=== PATIENT | female | born 1985 | race Caucasian/White ===

== ENCOUNTER 2016-08-29 23:08 | Inpatient (IN) | payer OTHER ==
[~2016-08-29] VITALS: Ht 162.6 cm; Wt 76.7 kg
[2016-08-29 23:26] VITALS: BP 109/73
[2016-08-29] MEDS ORDERED: PREN1TAB89 PO (23:29)
[2016-08-29] MEDS ORDERED: OXYTOCIN 30 UNITS/LACT RINGERS 500 ML IV ONE (23:54)
[2016-08-29] MEDS ORDERED: RINGERS SOLUTION,LACTATED 1,000 ML IV PRN (23:54)
[2016-08-30] MEDS ORDERED: FentaNYL CITRATE-PF 100 MCG/2 ML VIAL IVP PRN
[2016-08-30] MEDS ORDERED: CITRIC ACID/SODIUM CITRATE 30 ML SOLUTION UDCUP PO PRN
[2016-08-30] MEDS ORDERED: METOCLOPRAMIDE HCL 5 MG/ML 2 ML VIAL IVP PRN
[2016-08-30 00:21] LABS: BASOPHILS # (AUTO) 0.08 K/uL (0.00-0.20); BASOPHILS % (AUTO) 0.8 % (0.0-2.0); EOSINOPHILS # (AUTO) 0.08 K/uL (0.00-0.70); EOSINOPHILS % (AUTO) 0.82 % (1.0-6.0); HEMATOCRIT 33.2 % (36-46); LYMPHOCYTES % (AUTO) 20.5 % (22.0-44.0); MEAN CORPUSCULAR HEMOGLOBIN 30.1 pg (26.0-34.0); MEAN CORPUSCULAR HGB CONC 33.2 G/dL (31.0-37.0); MEAN CORPUSCULAR VOLUME 90 fL (80-100); MONOCYTES # (AUTO) 0.6 K/uL (0.1-1.0); MONOCYTES % (AUTO) 6.2 % (2.0-9.0); NEUTROPHILS # (AUTO) 6.9 K/uL (1.8-7.7); NEUTROPHILS % (AUTO) 71.6 % (40.0-70.0); RED BLOOD CELL COUNT(AUTO) 3.67 MIL/uL (4.00-5.20); RED CELL DISTRIBUTION WIDTH 14.3 % (11.5-14.5); WHITE BLOOD COUNT (AUTO) 9.6 K/uL (4.5-11.0)
[2016-08-30 00:47] LABS: RBC MORPHOLOGY COMMENT NORMAL RBC MORPH
[2016-08-30] MEDS ORDERED: FentaNYL/BUPIV 0.125%/NS/PF 200 ML ED ONE (01:33)
[2016-08-30] MEDS ORDERED: FentaNYL/BUPIV 0.125%/NS/PF 200 ML ED PRN (02:07)
[2016-08-30] MEDS ORDERED: NALBUPHINE HCL 10 MG/ML VIAL IVP PRN (02:15)
[2016-08-30] MEDS ORDERED: ONDANSETRON HCL 4 MG/2 ML VIAL IVP PRN (02:15)
[2016-08-30] MEDS ORDERED: DiphenhydrAMINE HCL 50 MG/ML VIAL IVP PRN (02:15)
[2016-08-30] MEDS ORDERED: BUPIVACAINE HCL/PF 0.25% 10 ML VIAL ONE (02:45)
[2016-08-30] MEDS ORDERED: GLYCERIN/WITCH HAZEL LEAF 40 PADS JAR TP PRN (04:45)
[2016-08-30] MEDS ORDERED: LANOLIN 7 GM OINTMENT TP PRN (04:45)
[2016-08-30] MEDS ORDERED: MAGNESIUM HYDROXIDE SUSPENSION 30 ML UDCUP PO PRN (04:45)
[2016-08-30] MEDS ORDERED: OxyCODONE HCL/ACETAMINOPHEN 5-325 MG TABLET PO PRN ×2 (04:45)
[2016-08-30] MEDS ORDERED: BENZOCAINE 20%/MENTHOL 56 GM SPRAY CANISTER TP PRN (04:45)
[2016-08-30] MEDS: IBUPROFEN 600 MG TABLET PO PRN ×3 (05:41→19:54)
[2016-08-30] MEDS ORDERED: OXYGEN THERAPY IH SCH (08:00)
[2016-08-30] MEDS: ONDANSETRON HCL 4 MG/2 ML VIAL IM PRN ×3 (10:53→11:02)
[2016-08-30] MEDS: ONDANSETRON HCL 4 MG/2 ML VIAL IVP PRN ×3 (11:12→11:15)
[2016-08-31] MEDS: IBUPROFEN 600 MG TABLET PO PRN (04:23)
[2016-08-31 06:44] LABS: BASOPHILS # (AUTO) 0.03 K/uL (0.00-0.20); BASOPHILS % (AUTO) 0.3 % (0.0-2.0); EOSINOPHILS # (AUTO) 0.12 K/uL (0.00-0.70); EOSINOPHILS % (AUTO) 1.19 % (1.0-6.0); HEMATOCRIT 26.3 % (36-46); HEMOGLOBIN 8.5 g/dL (12.0-16.0); LYMPHOCYTES # (AUTO) 2.2 K/uL (1.0-4.8); LYMPHOCYTES % (AUTO) 21.5 % (22.0-44.0); MEAN CORPUSCULAR HEMOGLOBIN 29.6 pg (26.0-34.0); MEAN CORPUSCULAR HGB CONC 32.4 G/dL (31.0-37.0); MEAN CORPUSCULAR VOLUME 91 fL (80-100); MONOCYTES # (AUTO) 0.6 K/uL (0.1-1.0); MONOCYTES % (AUTO) 5.9 % (2.0-9.0); NEUTROPHILS # (AUTO) 7.2 K/uL (1.8-7.7); NEUTROPHILS % (AUTO) 71.1 % (40.0-70.0); RED BLOOD CELL COUNT(AUTO) 2.88 MIL/uL (4.00-5.20); RED CELL DISTRIBUTION WIDTH 14.6 % (11.5-14.5); WHITE BLOOD COUNT (AUTO) 10.1 K/uL (4.5-11.0)
[2016-08-31] MEDS ORDERED: IBUP-1547 PO (09:43)
[2016-08-31] MEDS ORDERED: DSS100 PO (09:43)
[2016-08-31] MEDS ORDERED: FERR-89 PO (09:43)
== END 2016-08-31 10:50 | disposition home or self-care (01) | DRG 775 ==
LOC: 4S 23:08 → OBSVTOIN 23:08
PROVIDERS: ADMIT Obstetrics & Gynecology; ATTEND Obstetrics & Gynecology
PROC: 10E0XZZ Delivery of Products of Conception, External Approach (ICD-10-PCS; principal; 2016-08-30)
PROC: 00HU33Z Insertion of Infusion Device into Spinal Canal, Percutaneous Approach (ICD-10-PCS; 2016-08-30)
PROC: 3E0R3CZ (ICD-10-PCS; 2016-08-30)
PROC: 0HQ9XZZ Repair Perineum Skin, External Approach (ICD-10-PCS; 2016-08-30)
DX: O70.0 First degree perineal laceration during delivery (principal); Z3A.39 39 weeks gestation of pregnancy; Z37.0 Single live birth
CPT/HCPCS: 86850; 86900; 86901; J2405; J2590; J3010; J3490; J7120